=== PATIENT | male | born 1975 | race Caucasian/White ===

== ENCOUNTER 2022-05-03 20:37 | Emergency (ER) | payer OTHER ==
[2022-05-03 20:55] VITALS: BP 138/86; PULSE 85
== END 2022-05-03 21:40 | disposition home or self-care (01) ==
LOC: JD.ED 20:37
DX: N49.9 Inflammatory disorder of unspecified male genital organ (principal); E11.9 Type 2 diabetes mellitus without complications; E66.9 Obesity, unspecified; Z68.30 Body mass index [BMI] 30.0-30.9, adult; Z88.6 Allergy status to analgesic agent; Z88.5 Allergy status to narcotic agent; Z79.899 Other long term (current) drug therapy
CPT/HCPCS: 99283

== ENCOUNTER 2023-09-10 07:33 | Emergency (ER) | payer OTHER ==
[2023-09-10] MEDS ORDERED: Ketorolac 60 MG/2 ML SDV IM ONE (08:56)
[2023-09-10 11:23] VITALS: BP 152/90; PULSE 89
== END 2023-09-10 11:15 | disposition home or self-care (01) ==
LOC: JD.ED 07:33
DX: S20.211A Contusion of right front wall of thorax, initial encounter (principal); S20.212A Contusion of left front wall of thorax, initial encounter; R09.1 Pleurisy; E11.9 Type 2 diabetes mellitus without complications; E66.9 Obesity, unspecified; F17.210 Nicotine dependence, cigarettes, uncomplicated; Z68.41 Body mass index [BMI] 40.0-44.9, adult; Z88.5 Allergy status to narcotic agent; Z88.6 Allergy status to analgesic agent
CPT/HCPCS: 71250; 96372; 99285; J1885; 99284